=== PATIENT | female | born 1990 | race Hispanic/Latino ===

== ENCOUNTER 2018-12-05 15:50 | Emergency (ER) | payer BC | END 2018-12-05 17:16 | disposition home or self-care (01) | LOC: EDH 15:50 | DX: T17.208A Unspecified foreign body in pharynx causing other injury, initial encounter (principal); Z72.0 Tobacco use; X58.XXXA Exposure to other specified factors, initial encounter; Y93.89 Activity, other specified; Y92.89 Other specified places as the place of occurrence of the external cause; Y99.8 Other external cause status | CPT/HCPCS: 70360 ==

== ENCOUNTER 2021-10-09 11:47 | Emergency (ER) | payer BC, MEDICAID ==
[~2021-10-09] VITALS: Ht 175.3 cm; Wt 108.9 kg
[2021-10-09 11:51] VITALS: BP 124/73
[2021-10-09] MEDS ORDERED: IBUPROFEN 600 MG TABLET PO ONE (13:00)
[2021-10-09] MEDS ORDERED: NEOMYCIN/POLYMYXIN/HC OTIC SUSP 10ML BOTTLE AS ONE (13:00)
[2021-10-09] MEDS ORDERED: CORTSOL AS (13:10)
[2021-10-09] MEDS ORDERED: NAPR500T6 PO (13:10)
== END 2021-10-09 13:23 | disposition home or self-care (01) ==
LOC: EDH 11:47
DX: H60.92 Unspecified otitis externa, left ear (principal); Z98.890 Other specified postprocedural states

== ENCOUNTER 2022-11-28 10:07 | Emergency (ER) | payer OTHER, MEDICAID ==
[~2022-11-28] VITALS: Ht 175.3 cm; Wt 104.3 kg
[~2022-11-28 10:07] MED LIST: CORTSOL AS; NAPR500T6 PO
[2022-11-28 10:11] VITALS: BP 107/75
[2022-11-30] MEDS ORDERED: EPINEPHRINE 1 MG/ML 30ML VIAL IJ ONE (17:38)
== END 2022-11-28 13:48 | disposition left against medical advice (07) ==
LOC: EDH 10:07
DX: R68.89 Other general symptoms and signs (principal); Z53.21 Procedure and treatment not carried out due to patient leaving prior to being seen by health care provider
CPT/HCPCS: 99281